=== PATIENT | female | born 1945 | race Caucasian/White ===

== ENCOUNTER 2017-12-02 13:51 | Emergency (ER) | payer MEDICARE, BC ==
[2017-12-02] MEDS ORDERED: HYDROCODONE/ACETAMINOPHEN 5-325 MG TABLET PO ONE (14:38)
[2017-12-02] MEDS ORDERED: KETOROLAC TROMETHAMINE 60 MG/2 ML SDV IM ONE (14:38)
--- NOTE | 2017-12-02 14:46 | ER Document Report ---
ED Syncope and Near Syncope - General Chief Complaint: Passed Out Prior to Arrival Stated Complaint: FALL,ARM PAIN Time Seen by Provider: 12/02/17 14:37 Mode of Arrival: Ambulatory Information source: Patient Notes: Chief complaint: fall History of complain:( obtained from----patient) 72 years old female, with a history of hypertension, out in the yard bending down and picking up leaves, when she stood up felt dizzy and passed out for a minute. Lay on the ground. Had a head injury. Currently having pain over the whole body, headache. Denies any focal weakness numbness tingling sensation. Denies any neck pain neck stiffness. Denies any chest pain shortness of breath. Denies any palpitation or diaphoresis. Denies any abdominal pain nausea vomiting diarrhea. Denies any pain over lower extremity. Left shoulder mild tenderness on palpation. Onset: Sudden Duration: Just prior to arrival Severity: Moderate Quality: Achy Context: As described above Exacerbating factor and relieving factors: Movement of the shoulder left REVIEW OF SYSTEMS: CONSTITUTIONAL : Denies fever, chills, or sweats. Denies recent illness. EENT: Denies eye, ear, throat, or mouth pain or symptoms. Denies nasal or sinus congestion or discharge. Denies throat, tongue, or mouth swelling or difficulty swallowing. CARDIOVASCULAR: Denies chest pain. Denies palpitations or racing or irregular heart beat. Denies ankle edema. RESPIRATORY: Denies cough, cold, or chest congestion. Denies shortness of breath, difficulty breathing, or wheezing. GASTROINTESTINAL: Denies distention. Denies nausea, vomiting, or diarrhea. Denies blood in vomitus, stools, or per rectum. Denies black, tarry stools. Denies constipation. GENITOURINARY: Denies difficulty urinating, painful urination, burning, frequency, blood in urine, or discharge. FEMALE GENITOURINARY: Denies vaginal bleeding, heavy or abnormal periods, irregular periods. Denies vaginal discharge or odor. MUSCULOSKELETAL: SKIN: Denies rash, lesions or sores. HEMATOLOGIC : Denies easy bruising or bleeding. LYMPHATIC: Denies swollen, enlarged glands. NEUROLOGICAL: Denies confusion or altered mental status. Denies passing out or loss of consciousness. Denies dizziness or lightheadedness. Denies headache. Denies weakness or paralysis or loss of use of either side. Denies problems with gait or speech. Denies sensory loss, numbness, or tingling. Denies seizures. PSYCHIATRIC: Denies anxiety or stress. Denies depression, suicidal ideation, or homicidal ideation. ALL OTHER SYSTEMS REVIEWED AND NEGATIVE. PHYSICAL EXAMINATION: GENERAL: Well-appearing, well-nourished and in mild to moderate acute distress. Obesity HEAD: Atraumatic, normocephalic. EYES: Pupils equal round and reactive to light, extraocular movements intact, conjunctiva are normal. ENT: Nares patent, oropharynx clear without exudates. Moist mucous membranes. NECK: Normal range of motion, supple without lymphadenopathy. Flexion extension abduction abduction were within normal range. Nontender cervical spines LUNGS: Breath sounds clear to auscultation bilaterally and equal. No wheezes rales or rhonchi. HEART: Regular rate and rhythm without murmurs ABDOMEN: Soft, nontender, nondistended abdomen. No guarding, no rebound. No masses appreciated. Examination of genitals-deferred Musculoskeletal: Normal range of motion, no pitting or edema. No cyanosis. NEUROLOGICAL: Cranial nerves grossly intact. Normal speech, normal gait. Normal sensory, motor exams Except-left shoulder is tender on palpation, no swelling or discoloration of the skin noted range of motion is limited. PSYCH: Normal mood, normal affect. SKIN: Warm, Dry, normal turgor, no rashes or lesions noted. Dictation was performed using [employer] voice recognition software TRAVEL OUTSIDE OF THE [place] IN LAST 30 DAYS: No - HPI Notes: Dictated - Related Data Allergies/Adverse Reactions: Heparin Analogues [Heparin Agents] Allergy (Severe, Verified 12/02/17 13:52) warfarin sodium [From Coumadin] Allergy (Severe, Verified 12/02/17 13:52) cefaclor [From Ceclor] Allergy (Intermediate, Verified 12/02/17 13:52) cefprozil [From Cefzil] Allergy (Intermediate, Verified 12/02/17 13:52) cefuroxime axetil [From Ceftin] Allergy (Intermediate, Verified 12/02/17 13:52) hydrochlorothiazide Allergy (Verified 12/02/17 13:52) saxagliptin Allergy (Verified 12/02/17 13:52) Past Medical History - Social History Smoking Status: Never Smoker Cigarette use (# per day): No Chew tobacco use (# tins/day): No Smoking Education Provided: No Frequency of alcohol use: None Drug Abuse: None Lives with: Family Family History: Reviewed & Not Pertinent, Hypertension - Past Medical History Cardiac Medical History: Reports: Hx Hypercholesterolemia - DX TEN YEARS AGO, Hx Hypertension - DX FIVE YEARS AGO Pulmonary Medical History: Reports: Hx Pneumonia - LAST YEAR Endocrine Medical History: Reports: Hx Diabetes Mellitus Type 2 - DX FIVE YEARS AGO Renal/ Medical History: Reports: Hx Kidney Stones GI Medical History: Reports: Hx Gastroesophageal Reflux Disease, Hx Hiatal Hernia Psychiatric Medical History: Reports: Hx Anxiety - DX MORE THAN TEN YEARS, Hx Depression - HAD IN THE PASS Past Surgical History: Reports: Hx Appendectomy, Hx Cholecystectomy, Hx Hysterectomy, Hx Kidney (Renal Surgery), Hx Orthopedic Surgery - right knee surgery, Hx Tonsillectomy. Denies: Hx Adenoidectomy - Immunizations Hx Diphtheria, Pertussis, Tetanus Vaccination: No Review of Systems - Review of Systems Notes: Dictated Physical Exam - Vital signs Vitals: Temp Pulse Resp BP Pulse Ox 98.4 F 72 15 151/63 H 97 12/02/17 13:55 12/02/17 13:55 12/02/17 13:55 12/02/17 13:55 12/02/17 13:55 - Notes Notes: Dictated Course - Vital Signs Vital signs: Temp Pulse Resp BP Pulse Ox 98.4 F 72 15 151/63 H 97 12/02/17 13:55 12/02/17 13:55 12/02/17 13:55 12/02/17 13:55 12/02/17 13:55 - Laboratory Laboratory results interpreted by me: 12/02/17 13:58 POC Glucose 145 H - Diagnostic Test Radiology reviewed: Reports reviewed - CT of the head reported by radiologist as negative Left shoulder reported by radiologist as no fractures Discharge - Discharge Clinical Impression: Vasovagal near syncope Fall Qualifiers: Encounter type: initial encounter Qualified Code(s): W19.XXXA - Unspecified fall, initial encounter Shoulder pain, acute Qualifiers: Laterality: left Qualified Code(s): M25.512 - Pain in left shoulder Condition: Fair Disposition: HOME, SELF-CARE Instructions: Vasovagal Symptoms ([facility]), Head Injury Precautions ([facility]) Prescriptions: Baclofen [Baclofen 10 mg Tablet] 10 mg PO TID #60 tab Hydrocodone/Acetaminophen [Hydrocodon-Acetaminoph 7.5-325] 1 each PO TID #20 tablet Referrals: IVONNE HESS MD [Primary Care Provider] - Follow up as needed
--- NOTE | 2017-12-02 15:08 | RADIOLOGY REPORT (SQ) ---
EXAM DESCRIPTION: CT HEAD WITHOUT COMPLETED DATE/TIME: 12/02/2017 2:51 pm REASON FOR STUDY: Fall and injury COMPARISON: None. TECHNIQUE: Axial images acquired through the brain without intravenous contrast. Images reviewed wi th bone, brain and subdural windows. Additional sagittal and coronal reconstructions were generated. Images stored on PACS. All CT scanners at this facility use dose modulation, iterative reconstruction, and/or weight based d osing when appropriate to reduce radiation dose to as low as reasonably achievable (ALARA). [facility]: Dose Right [facility]: CareDose [facility]: Dose Right [facility]: Teradose 4D [facility]: [employer] RADIATION DOSE: CT Rad equipment meets quality standard of care and radiation dose reduction techniq ues were employed. CTDIvol: 53.2 mGy. DLP: 991 mGy-cm. LIMITATIONS: None. FINDINGS: VENTRICLES: The ventricles are mildly prominent commensurate with the sulci. The cisterns are patent. CEREBRUM: Chronic slight small vessel ischemic changes. No masses. No hemorrhage. No midline shif t. No evidence for acute infarction. CEREBELLUM: No masses. No hemorrhage. No alteration of density. No evidence for acute infarction. EXTRAAXIAL SPACES: Age related involutional change. No fluid collections. No masses. ORBITS AND GLOBE: No intra- or extraconal masses. Normal contour of globe without masses. CALVARIUM: No fracture. PARANASAL SINUSES: No fluid or mucosal thickening. Slight deviation of the nasal septum to the left of the midline. Nasal bony spur. SOFT TISSUES: No mass or hematoma. OTHER: Partial empty sella. IMPRESSION: 1. No acute intracranial abnormality. 2. Mild atrophy and chronic slight small vessel ischemic changes. EVIDENCE OF ACUTE STROKE: NO. COMMENT: Quality ID # [id number]: Final reports with documentation of one or more dose reduction techniques (e.g., Automated exposure control, adjustment of the mA and/or kV according to patient size, use of iterative reconstruction technique) TECHNICAL DOCUMENTATION: JOB ID: [id number] [employer]- All Rights Reserved Reading location - IP/workstation name: [email or web address]
--- NOTE | 2017-12-02 15:35 | RADIOLOGY REPORT (SQ) ---
EXAM DESCRIPTION: SHOULDER LEFT 2 OR MORE VIEWS COMPLETED DATE/TIME: 12/02/2017 3:25 pm REASON FOR STUDY: Fall and injury COMPARISON: None. NUMBER OF VIEWS: Three views. TECHNIQUE: Internal rotation, external rotation, and Y view images acquired of the left shoulder. LIMITATIONS: None. FINDINGS: MINERALIZATION: Normal. BONES: No acute fracture or dislocation. No worrisome bone lesions. JOINTS: No dislocation. VISUALIZED LUNGS AND RIBS: No pneumothorax. No rib fracture. SOFT TISSUES: No radiopaque foreign body. OTHER: No other significant finding. IMPRESSION: NEGATIVE STUDY OF THE LEFT SHOULDER. NO RADIOGRAPHIC EVIDENCE OF ACUTE INJURY. TECHNICAL DOCUMENTATION: JOB ID: [id number] [employer]- All Rights Reserved Reading location - IP/workstation name: [email or web address]
[2017-12-02 16:25] VITALS: BP 145/69
== END 2017-12-02 16:22 | disposition home or self-care (01) ==
LOC: ER 13:51
DX: R55 Syncope and collapse (principal); S09.90XA Unspecified injury of head, initial encounter; M25.512 Pain in left shoulder; M79.1 Myalgia; I10 Essential (primary) hypertension; W19.XXXA Unspecified fall, initial encounter; Y93.H2 Activity, gardening and landscaping; E11.9 Type 2 diabetes mellitus without complications
CPT/HCPCS: 99284; 96372; 82962; 73030; 70450; J1885; A9270

== ENCOUNTER → 2018-02-18 | Outpatient (CLI) | payer MEDICARE, BC | LOC: LAB 10:05 | DX: Z22.322 Carrier or suspected carrier of Methicillin resistant Staphylococcus aureus (principal) | CPT/HCPCS: 87070 ==

== ENCOUNTER → 2019-09-22 | Outpatient (CLI) | payer MEDICARE, BC ==
--- NOTE | 2019-09-22 18:16 | RADIOLOGY REPORT (SQ) ---
EXAM DESCRIPTION: CT CHEST WITHOUT IMAGES COMPLETED DATE/TIME: 09/22/2019 5:57 pm REASON FOR STUDY: S29.9XXA UNSPECIFIED INJURY OF THORAX, INITIAL ENCOUNTER S29.9XXA UNSPECIFIED INJ URY OF THORAX, INITIAL ENCOUNTER COMPARISON: None. TECHNIQUE: CT scan performed of the chest without intravenous contrast. Images reviewed with lung, soft tissue and bone windows. Reconstructed coronal and sagittal MPR images reviewed. All images st ored on PACS. All CT scanners at this facility use dose modulation, iterative reconstruction, and/or weight based d osing when appropriate to reduce radiation dose to as low as reasonably achievable (ALARA). [facility]: Dose Right [facility]: CareDose [facility]: Dose Right [facility]: Teradose 4D [facility]: [employer] RADIATION DOSE: CT Rad equipment meets quality standard of care and radiation dose reduction techniq ues were employed. CTDIvol: 18.2 mGy. DLP: 709 mGy-cm. mGy. LIMITATIONS: No technical limitations. FINDINGS: LUNGS AND PLEURA: No masses, infiltrates, or pneumothorax. No pleural effusions or pleura l calcifications. HILAR AND MEDIASTINAL STRUCTURES: No identified masses or abnormal nodes. No obvious aneurysm. HEART AND VASCULAR STRUCTURES: No aneurysm. No pericardial effusion. UPPER ABDOMEN: Small hiatal hernia. Status post splenectomy and cholecystectomy. No acute findings. THYROID AND OTHER SOFT TISSUES: No masses or lymphadenopathy. BONES: Mild degenerative changes of the spine. No evidence of acute or subacute fracture. HARDWARE: None in the chest. OTHER: No other significant findings. IMPRESSION: No rib fracture or pneumothorax. No acute findings. TECHNICAL DOCUMENTATION: JOB ID: [id number] Quality ID # [id number]: Final reports with documentation of one or more dose reduction techniques (e.g., Au tomated exposure control, adjustment of the mA and/or kV according to patient size, use of iterative reconstruction technique) 2010 [employer]- All Rights Reserved Reading location - IP/workstation name: [email or web address]
== END ==
LOC: RAD 17:12
PROVIDERS: ATTEND Nurse Practitioner Family
DX: S29.9XXA Unspecified injury of thorax, initial encounter (principal); X58.XXXA Exposure to other specified factors, initial encounter
CPT/HCPCS: 71250